=== PATIENT | male | born 1980 | race Two or more races ===

== ENCOUNTER 2018-09-07 07:54 | Outpatient (CLI) | payer OTHER ==
--- NOTE | 2018-09-07 08:39 | MRI Report ---
Reason: DIZZINESS AND GIDDINESS Procedure Date: 09/07/2018 Accession Number: [id number] / [id number] Procedure: MRI - Angio Brain W/O (MRA) CPT Code: FULL RESULT: EXAM MRA BRAIN EXAM DATE: 09/07/2018 08:25 AM. CLINICAL HISTORY: 38-year-old man with history of recent onset dizziness. COMPARISON: None. TECHNIQUE: Multiplanar, multisequence MRA sequences of the brain were performed. Other: None. Post-processing: Multiplanar 3D MIP reconstructions. IV Contrast: None. FINDINGS: RIGHT: - Visualized Internal Carotid: Patent without significant stenosis or aneurysm. - Anterior Cerebral: Patent without significant stenosis or aneurysm. - Middle Cerebral: Patent without significant stenosis or aneurysm. - Posterior Cerebral: Patent without significant stenosis or aneurysm. - Posterior Communicating: Patent. No aneurysm. - Visualized Vertebral: Patent without significant stenosis or dissection. LEFT: - Visualized Internal Carotid: Patent without significant stenosis or aneurysm. - Anterior Cerebral: Patent without significant stenosis or aneurysm. - Middle Cerebral: Patent without significant stenosis or aneurysm. - Posterior Cerebral: Patent without significant stenosis or aneurysm. - Posterior Communicating: Patent. No aneurysm. - Visualized Vertebral: Patent without significant stenosis or dissection. The left vertebral artery is dominant. CENTRAL: - Anterior Communicating: Patent. No aneurysm. - Basilar: Patent without significant stenosis, dissection, or aneurysm. IMPRESSION: 1. Normal brain MRA. No significant vascular stenosis or aneurysm. [facility]
== END 2018-09-07 07:55 | disposition home or self-care (01) ==
LOC: DI 07:54
PROVIDERS: ATTEND General Practice
DX: R42 Dizziness and giddiness (principal)
CPT/HCPCS: 70544